=== PATIENT | female | born 1955 | race Caucasian/White ===

== ENCOUNTER → 2018-03-16 10:12 | Outpatient (CLI) | payer OTHER, SELFPAY ==
[2018-03-16 11:07] LABS: Cholesterol 170 mg/dL (140-199); HDL Cholesterol 79 mg/dL (40-60); LDL Cholesterol Calculated 73 mg/dL (<100); Triglycerides 89 mg/dL (35-150)
[2018-03-16 11:54] LABS: Vitamin B12 648 pg/mL (239-931)
[2018-03-17 15:33] LABS: Folate, RBC 1103 ng/mL RBC (> 280)
== END ==
PROVIDERS: PCP Family Medicine; Visit Provider Family Medicine
DX: K14.6 Glossodynia (principal); E78.00 Pure hypercholesterolemia, unspecified
CPT/HCPCS: 36415; 80061; 82607; 82747

== ENCOUNTER → 2018-05-24 10:58 | Outpatient (CLI) | payer OTHER, SELFPAY ==
[2018-05-24 11:32] LABS: Add Manual Diff / Slide Review NO; Basophils Percent Auto 1.1 % (0-2); Eosinophils Percent Auto 1.9 % (2-4); Hematocrit 36.5 % (36-46); Lymphocytes Percent Auto 12.9 % (25-40); Mean Corpuscular HGB Conc 35.6 % (30-36); Mean Corpuscular Hemoglobin 34.8 PG (26-34); Mean Corpuscular Volume 97.9 fL (80-100); Monocytes Percent Auto 6.8 % (3-14); Neutrophils Absolute Auto 5100 /uL (3000-5900); Neutrophils Percent Auto 77.3 % (50-75); Platelet Count 244 X10^3/uL (150-400); Red Blood Cell Count 3.73 X10^6/uL (4.0-5.2); White Blood Cell Count 6.5 X10^3/uL (4.5-11.0)
[2018-05-24 11:44] LABS: Alanine Aminotransferase 21 IU/L (9-52); Albumin 4.1 g/dL (3.5-5.0); Albumin Globulin Ratio 1.8 (1.0-2.8); Alkaline Phosphatase 54 U/L (38-126); Aspartate Aminotransferase 25 IU/L (14-36); BUN Creatinine Ratio 27.1 (6-22); Bilirubin Total 0.4 mg/dL (0.2-1.3); Blood Urea Nitrogen 19 mg/dL (7-17); Calcium 9.3 mg/dL (8.4-10.2); Carbon Dioxide 32 mmol/L (22-32); Chloride 104 mmol/L (98-107); Estimated Glomerular Filt Rate > 60.0 mL/min (>60); Globulin 2.3 g/dL (1.7-4.1); Glucose 106 mg/dL (80-110); HEMOLYSIS < 15 (0-50); Potassium 4.5 mmol/L (3.4-5.1); Sodium 143 mmol/L (137-145); Total Protein 6.4 g/dL (6.3-8.2)
== END ==
PROVIDERS: PCP Family Medicine; Visit Provider Nurse Practitioner Gerontology
DX: D05.12 Intraductal carcinoma in situ of left breast (principal)
CPT/HCPCS: 36415; 80053; 85025

== ENCOUNTER 2018-06-08 12:30 | Oncology outpatient (ONC) | payer OTHER, SELFPAY ==
--- NOTE | 2018-06-08 13:26 | ONC.APRN.PN ---
PN -Subjective Interval history: The patient is a 63 year old Female who is being seen in the clinic 06/08/2018 for ductal carcinoma in situ, left side, status post lumpectomy, favorable histology, low-grade solid and cribriform type, 2 mm in lumpectomy specimen 6 mm by core biopsy, strongly estrogen receptor and progesterone receptor positive. Routine bilateral screening mammogram 11/17/2017 which identified new clustered calcifications in the left breast. Additional imaging ordered which demonstrated architectural distortion consistent with post lumpectomy scar. Impression is benign with a recommendation to repeat one year screening mammogram. 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 She is seeing dermatology, ([facility]) expects to complete treatment in the next few weeks. Jerson remains on tamoxifen. She continues to have night sweats. No vaginal bleeding. Mood is stable. No new musculoskeletal pain. No shortness of breath, lower extremity pain or discomfort. Overall feeling well has been working in her garden. Exercises some, but I need to do more. TIMELINE She underwent bilateral screening mammography on 09/05/2015 with the finding of a cluster of calcifications at 2:00. Additional views on 09/14/2015 showed a cluster of fine pleomorphic punctate calcifications in the left breast at intermediate suspicion for malignancy a stereotactic biopsy was recommended. A stereotactic breast biopsy with clip placement was performed on 09/21/2015 with a finding of a ductal carcinoma in situ cribriform type with intermediate grade nuclei, focal comedo necrosis, no invasive carcinoma, no lymphovascular invasion, microcalcifications present associated with in situ carcinoma, maximum span 6 mm. ER greater than 95% MA 95%. She had to be seen for a postbiopsy hematoma but otherwise healed nicely. From the notes it appears that the patient was considering going to [facility] for treatment and was working on insurance issues but ultimately decided to stay here and consulted with Dr. Romeo who went through the management approach to DCIS and ultimately a lumpectomy was elected A bilateral breast MRI was performed on 11/12/2015 showing no suspicious findings either in the breast tissue or in the internal mammary or axillary nodes that were visualized. She underwent a left breast lumpectomy after needle localization on 11/27/2015 with findings of a small 2 mm focus of ductal carcinoma in situ low-grade solid and cribriform type negative margins closest 3 mm some additional prior biopsies biopsy site changes, no invasive carcinoma. The patient went through menopause 12 years ago and since then treated with estradiol 0.5 mg and Provera. according to Dr. Leon's note. She was seen in October for postmenopausal bleeding on and off and underwent an endometrial biopsy with Dr. Leon that biopsy is not available. She unerwent adjuvant radiation to the left breast from February through March 11, 20 treatments, 4540 cGy. Pt. was started on tamoxifen April 2016. Past Medical History Postmenopausal bleeding seen by Dr. Leon in October and endometrial biopsy was performed, results not available yet. Long history of irritable bowel syndrome she is followed by Dr. Alba at [facility] has been treated with Asacol at last that was unhelpful but Lotronex has helped. She states her colonoscopy is due in 1 year. Last menstrual period 12 years ago treated with estrogen and Provera subsequently. Patient reports a history of osteoporosis; Dr. Archer'e notes say osteopenia on 10/25/15, previously treated with Fosamax; that was discontinued by Josette Cornelius and was receiving Prolia; patient states that Dr. Vance is waiting for the results of the DEXA scan to decide what to do next. Ab0 Migraines Treated briefly in the past for hypertension, not now Negative for hypercholesterolemia, negative for diabetes No other hospitalizations or surgery She receives Lexapro and amitriptyline also sees Lucy Mendoza for depression. She is Ab0. Home Medications and Allergies Home Medications Medication Instructions Recorded Confirmed Type tamoxifen 20 mg PO QDAY #0 tab 06/03/16 03/03/18 History fluorouracil [Efudex] 1 daryl TOPICAL #0 11/24/17 03/03/18 History rizatriptan [Maxalt-[employer] ENGINEER] 10 mg PO PRN PRN #12 tab 04/20/18 Rx dicyclomine 20 mg tablet 20 mg PO BID #60 tab 05/25/18 Rx gabapentin 400 mg capsule 400 mg PO BIDP #60 cap 05/25/18 Rx meloxicam [Mobic] 7.5 mg PO QDAY #30 tab 05/25/18 Rx diphenoxylate-atropine 2.5 2.5 mg PO SEE INSTRUCTIONS #120 06/07/18 Rx mg-0.025 mg tablet Multiple Vitamins 06/08/18 History alosetron [Lotronex] 0.5 mg PO QID 06/08/18 06/08/18 History amitriptyline 25 mg PO BEDTIME 06/08/18 06/08/18 History Allergies Allergy/AdvReac Type Severity Reaction Status Date / Time No Known Drug Allergies Allergy Unverified 03/03/18 12:02 Exam - Constitutional positive no acute distress, positive thin - Routine HEENT Exam Eye: Present: conjunctivae pink. Absent: conjunctival icterus, scleral injection ENT: Present: mucous membranes moist, oropharynx clear - Routine Neck Exam Present: supple. Absent: lymphadenopathy - Routine Chest/Breast/Axilla Exam Chest wall exam standard: Absent: tenderness, mass Breast: Present: scars. Absent: tenderness, induration, mass, rashes Axillae: Absent: lymphadenopathy, mass, tenderness Comments: left breast lumpectomy scar - Routine Respiratory Exam Present: Clear to auscultation bilaterally. Absent: rales, rhonchi, wheezes - Routine Cardiovascular Exam Present: RRR, S1, S2. Absent: murmur, gallop, rubs, JVD - Routine Abdominal Exam Present: soft, normoactive bowel sounds. Absent: tenderness, distended, organomegaly, mass - Routine Extremities Exam Absent: edema, calf tenderness - Routine Skin Exam Present: intact, normal turgor. Absent: rash - Routine Neurological Exam Present: alert, oriented X3 - Routine Psychiatric Exam Present: normal affect Assessment and Plan (1) Ductal carcinoma in situ (DCIS) of left breast Current visit: No Status: Acute The patient is a 63 year old Female who is being seen in the clinic 06/08/2018 for ductal carcinoma in situ, left side, status post lumpectomy, favorable histology, low-grade solid and cribriform type, 2 mm in lumpectomy specimen 6 mm by core biopsy, strongly estrogen receptor and progesterone receptor positive. Tolerating tamoxifen without adverse effects. CBC CMP unremarkable. Annual bilateral screening mammogram will be due in November of 2018. Reassuringly no clinical signs or symptoms to suggest disease recurrence. I have asked the patient to return in 6 months time to establish with 1 of our new oncologist at which point we will also check a CBC, CMP. DXA scan reviewed again with the pt, she has mild osteopenia. She is taking daily vit D and calcium.
--- NOTE | 2018-06-08 13:31 | P.PNONC_ITS ---
PN -Subjective Interval history: The patient is a 63 year old Female who is being seen in the clinic 06/08/2018 for ductal carcinoma in situ, left side, status post lumpectomy, favorable histology, low-grade solid and cribriform type, 2 mm in lumpectomy specimen 6 mm by core biopsy, strongly estrogen receptor and progesterone receptor positive. Routine bilateral screening mammogram 11/17/2017 which identified new clustered calcifications in the left breast. Additional imaging ordered which demonstrated architectural distortion consistent with post lumpectomy scar. Impression is benign with a recommendation to repeat one year screening mammogram. 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 She is seeing dermatology, ([facility]) expects to complete treatment in the next few weeks. Jerson remains on tamoxifen. She continues to have night sweats. No vaginal bleeding. Mood is stable. No new musculoskeletal pain. No shortness of breath , lower extremity pain or discomfort. Overall feeling well has been working in her garden. Exercises some, but I need to do more. TIMELINE She underwent bilateral screening mammography on 09/05/2015 with the finding of a cluster of calcifications at 2:00. Additional views on 09/14/2015 showed a cluster of fine pleomorphic punctate calcifications in the left breast at intermediate suspicion for malignancy a stereotactic biopsy was recommended. A stereotactic breast biopsy with clip placement was performed on 09/21/2015 with a finding of a ductal carcinoma in situ cribriform type with intermediate grade nuclei, focal comedo necrosis, no invasive carcinoma, no lymphovascular invasion, microcalcifications present associated with in situ carcinoma, maximum span 6 mm. ER greater than 95% LA 95%. She had to be seen for a postbiopsy hematoma but otherwise healed nicely. From the notes it appears that the patient was considering going to [facility] for treatment and was working on insurance issues but ultimately decided to stay here and consulted with Dr. Romeo who went through the management approach to DCIS and ultimately a lumpectomy was elected A bilateral breast MRI was performed on 11/12/2015 showing no suspicious findings either in the breast tissue or in the internal mammary or axillary nodes that were visualized. She underwent a left breast lumpectomy after needle localization on 11/27/2015 with findings of a small 2 mm focus of ductal carcinoma in situ low-grade solid and cribriform type negative margins closest 3 mm some additional prior biopsies biopsy site changes, no invasive carcinoma. The patient went through menopause 12 years ago and since then treated with estradiol 0.5 mg and Provera. according to Dr. Leon's note. She was seen in October for postmenopausal bleeding on and off and underwent an endometrial biopsy with Dr. Leon that biopsy is not available. She unerwent adjuvant radiation to the left breast from February through March 11, 20 treatments, 4540 cGy. Pt. was started on tamoxifen April 2016. Past Medical History Postmenopausal bleeding seen by Dr. Leon in October and endometrial biopsy was performed, results not available yet. Long history of irritable bowel syndrome she is followed by Dr. Alba at [facility] has been treated with Asacol at last that was unhelpful but Lotronex has helped. She states her colonoscopy is due in 1 year. Last menstrual period 12 years ago treated with estrogen and Provera subsequently. Patient reports a history of osteoporosis; Dr. Archer'e notes say osteopenia on , previously treated with Fosamax; that was discontinued by Josette Cornelius and was receiving Prolia; patient states that Dr. Vance is waiting for the results of the DEXA scan to decide what to do next. Ab0 Migraines Treated briefly in the past for hypertension, not now Negative for hypercholesterolemia, negative for diabetes No other hospitalizations or surgery She receives Lexapro and amitriptyline also sees Lucy Mendoza for depression. She is Ab0. Home Medications and Allergies Home Medications Medication Instructions Recorded Confirmed Type tamoxifen 20 mg PO QDAY #0 tab 06/03/16 03/03/18 History fluorouracil [Efudex] 1 daryl TOPICAL #0 11/24/17 03/03/18 History rizatriptan [Maxalt-PRACTICING UROLOGIST] 10 mg PO PRN PRN #12 tab 04/20/18 Rx dicyclomine 20 mg tablet 20 mg PO BID #60 tab 05/25/18 Rx gabapentin 400 mg capsule 400 mg PO BIDP #60 cap 05/25/18 Rx meloxicam [Mobic] 7.5 mg PO QDAY #30 tab 05/25/18 Rx diphenoxylate-atropine 2.5 2.5 mg PO SEE INSTRUCTIONS #120 06/07/18 Rx mg-0.025 mg tablet Multiple Vitamins 06/08/18 History alosetron [Lotronex] 0.5 mg PO QID 06/08/18 06/08/18 History amitriptyline 25 mg PO BEDTIME 06/08/18 06/08/18 History Allergies Allergy/AdvReac Type Severity Reaction Status Date / Time No Known Drug Allergies Allergy Unverified 03/03/18 12:02 Exam - Constitutional positive no acute distress, positive thin - Routine HEENT Exam Eye: Present: conjunctivae pink. Absent: conjunctival icterus, scleral injection ENT: Present: mucous membranes moist, oropharynx clear - Routine Neck Exam Present: supple. Absent: lymphadenopathy - Routine Chest/Breast/Axilla Exam Chest wall exam standard: Absent: tenderness, mass Breast: Present: scars. Absent: tenderness, induration, mass, rashes Axillae: Absent: lymphadenopathy, mass, tenderness Comments: left breast lumpectomy scar - Routine Respiratory Exam Present: Clear to auscultation bilaterally. Absent: rales, rhonchi, wheezes - Routine Cardiovascular Exam Present: RRR, S1, S2. Absent: murmur, gallop, rubs, JVD - Routine Abdominal Exam Present: soft, normoactive bowel sounds. Absent: tenderness, distended, organomegaly, mass - Routine Extremities Exam Absent: edema, calf tenderness - Routine Skin Exam Present: intact, normal turgor. Absent: rash - Routine Neurological Exam Present: alert, oriented X3 - Routine Psychiatric Exam Present: normal affect Assessment and Plan (1) Ductal carcinoma in situ (DCIS) of left breast Current visit: No Status: Acute The patient is a 63 year old Female who is being seen in the clinic 06/08/2018 for ductal carcinoma in situ, left side, status post lumpectomy, favorable histology, low-grade solid and cribriform type, 2 mm in lumpectomy specimen 6 mm by core biopsy, strongly estrogen receptor and progesterone receptor positive. Tolerating tamoxifen without adverse effects. CBC CMP unremarkable. Annual bilateral screening mammogram will be due in November of 2018. Reassuringly no clinical signs or symptoms to suggest disease recurrence. I have asked the patient to return in 6 months time to establish with 1 of our new oncologist at which point we will also check a CBC, CMP. DXA scan reviewed again with the pt, she has mild osteopenia. She is taking daily vit D and calcium.
== END 2018-06-23 14:14 ==
LOC: ONC 12:33
PROVIDERS: PCP Family Medicine; Visit Provider Nurse Practitioner Gerontology
DX: D05.12 Intraductal carcinoma in situ of left breast (principal); C51.9 Malignant neoplasm of vulva, unspecified; M85.80 Other specified disorders of bone density and structure, unspecified site; Z17.0 Estrogen receptor positive status [ER+]; Z79.810 Long term (current) use of selective estrogen receptor modulators (SERMs)
CPT/HCPCS: 99214

== ENCOUNTER → 2018-11-11 12:37 | Outpatient (CLI) | payer OTHER, SELFPAY ==
[2018-11-11 13:16] LABS: Add Manual Diff / Slide Review NO; Basophils Absolute Auto 100 /uL (0-100); Basophils Percent Auto 1.3 % (0-2); Eosinophils Absolute Auto 100 /uL (0-450); Hematocrit 38.6 % (36-46); Hemoglobin 13.2 g/dL (12.0-16.0); Lymphocytes Absolute Auto 1200 /uL (1100-4500); Lymphocytes Percent Auto 19.4 % (25-40); Mean Corpuscular HGB Conc 34.1 % (30-36); Mean Corpuscular Hemoglobin 33.5 PG (26-34); Mean Corpuscular Volume 98.2 fL (80-100); Monocytes Absolute Auto 500 /uL (0-900); Monocytes Percent Auto 7.9 % (3-14); Neutrophils Absolute Auto 4300 /uL (1500-7000); Neutrophils Percent Auto 70.4 % (50-75); Platelet Count 268 X10^3/uL (150-400); Red Blood Cell Count 3.93 X10^6/uL (4.0-5.2); Red Cell Distribution Width 11.9 % (11.6-14.8); White Blood Cell Count 6.2 X10^3/uL (4.5-11.0)
[2018-11-11 13:30] LABS: Alanine Aminotransferase 27 IU/L (9-52); Albumin 4.4 g/dL (3.5-5.0); Albumin Globulin Ratio 1.9 (1.0-2.8); Alkaline Phosphatase 66 U/L (38-126); Aspartate Aminotransferase 24 IU/L (14-36); BUN Creatinine Ratio 31.7 (6-22); Bilirubin Total 0.2 mg/dL (0.2-1.3); Blood Urea Nitrogen 19 mg/dL (7-17); Carbon Dioxide 28 mmol/L (22-32); Chloride 101 mmol/L (98-107); Cholesterol 165 mg/dL (140-199); Estimated Glomerular Filt Rate > 60.0 mL/min (>60); Globulin 2.3 g/dL (1.7-4.1); Glucose 87 mg/dL (80-110); HDL Cholesterol 87 mg/dL (40-60); HEMOLYSIS < 15 (0-50); LDL Cholesterol Calculated 48 mg/dL (<100); Potassium 3.6 mmol/L (3.4-5.1); Sodium 138 mmol/L (137-145); Total Protein 6.7 g/dL (6.3-8.2); Triglycerides 148 mg/dL (35-150)
[2018-11-11 15:00] LABS: Thyroid Stimulating Hormone 3.29 uIU/mL (0.47-4.68)
== END ==
PROVIDERS: Family Provider Psychiatry & Neurology Psychiatry; PCP Family Medicine; Visit Provider Internal Medicine Hematology & Oncology
DX: D05.12 Intraductal carcinoma in situ of left breast (principal); I10 Essential (primary) hypertension
CPT/HCPCS: 36415; 80053; 80061; 84443; 85025

== ENCOUNTER → 2018-12-15 14:37 | Outpatient (CLI) | payer OTHER, SELFPAY | PROVIDERS: Family Provider Psychiatry & Neurology Psychiatry; PCP Family Medicine; Visit Provider Internal Medicine Gastroenterology | DX: Z79.899 Other long term (current) drug therapy (principal) | CPT/HCPCS: 36415; 80335 ==

== ENCOUNTER → 2018-12-17 11:34 | Outpatient (CLI) | payer OTHER, SELFPAY ==
--- NOTE | 2018-12-17 | DI.MG.S_ITS ---
BILATERAL DIGITAL SCREENING MAMMOGRAM 3D/2D WITH CAD POST LUMPECTOMY: 12/17/2018 CLINICAL: Routine screening. Personal history of left breast cancer. Comparison is made to exams dated: 11/25/2017 mammogram, 11/17/2017 mammogram, and 09/05/2015 mammogram - [facility]. The tissue of both breasts is extremely dense, which lowers the sensitivity of mammography. Current study was also evaluated with a Computer Aided Detection (CAD) system. There are benign post operative findings in the left breast. There also are benign calcifications in the left breast. No significant masses, calcifications, or other findings are seen in either breast. There has been no significant interval change. IMPRESSION: There is no mammographic evidence of malignancy. A 1 year screening mammogram is recommended. This exam was interpreted at Station ID: [id number]. NOTE: For mammograms, a report in lay terms will be sent to the patient. Approximately 15% of breast malignancies will not be visualized mammographically. In the management of a palpable breast mass, a negative mammogram must not discourage biopsy of a clinically suspicious lesion. Electronically Signed By: Manuel mariscal/marge:12/17/2018 19:27:16 copy to: LEW PARADA letter sent: Normal Exam ACR BI-RADS Category 2: Benign Finding(s) [id number]
== END ==
PROVIDERS: Family Provider Psychiatry & Neurology Psychiatry; PCP Family Medicine; Visit Provider Internal Medicine Hematology & Oncology
DX: Z12.31 Encounter for screening mammogram for malignant neoplasm of breast (principal); Z85.3 Personal history of malignant neoplasm of breast
CPT/HCPCS: 77063; 77067

== ENCOUNTER → 2019-01-07 13:09 | Outpatient (CLI) | payer OTHER, SELFPAY ==
[2019-01-07 14:00] LABS: Add Manual Diff / Slide Review NO; Basophils Absolute Auto 0 /uL (0-100); Basophils Percent Auto 1.1 % (0-2); Eosinophils Absolute Auto 100 /uL (0-450); Eosinophils Percent Auto 2.5 % (2-4); Hematocrit 34.1 % (36-46); Lymphocytes Absolute Auto 1400 /uL (1100-4500); Lymphocytes Percent Auto 32.9 % (25-40); Mean Corpuscular HGB Conc 35.3 % (30-36); Mean Corpuscular Hemoglobin 34.9 PG (26-34); Mean Corpuscular Volume 98.7 fL (80-100); Monocytes Absolute Auto 500 /uL (0-900); Monocytes Percent Auto 10.9 % (3-14); Neutrophils Absolute Auto 2200 /uL (1500-7000); Neutrophils Percent Auto 52.6 % (50-75); Platelet Count 289 X10^3/uL (150-400); Red Blood Cell Count 3.45 X10^6/uL (4.0-5.2); White Blood Cell Count 4.3 X10^3/uL (4.5-11.0)
[2019-01-07 14:07] LABS: Alanine Aminotransferase 25 IU/L (9-52); Albumin 3.2 g/dL (3.5-5.0); Albumin Globulin Ratio 1.5 (1.0-2.8); Alkaline Phosphatase 71 U/L (38-126); Aspartate Aminotransferase 24 IU/L (14-36); Blood Urea Nitrogen 9 mg/dL (7-17); Calcium 8.6 mg/dL (8.4-10.2); Carbon Dioxide 30 mmol/L (22-32); Chloride 99 mmol/L (98-107); Estimated Glomerular Filt Rate > 60.0 mL/min (>60); Globulin 2.1 g/dL (1.7-4.1); Glucose 86 mg/dL (80-110); HEMOLYSIS < 15 (0-50); Potassium 3.9 mmol/L (3.4-5.1); Sodium 136 mmol/L (137-145); Total Protein 5.3 g/dL (6.3-8.2)
[2019-01-07 14:11] LABS: Bilirubin Total < 0.1 mg/dL (0.2-1.3)
== END ==
PROVIDERS: Family Provider Psychiatry & Neurology Psychiatry; PCP Family Medicine; Visit Provider Internal Medicine Gastroenterology
DX: K58.0 Irritable bowel syndrome with diarrhea (principal)
CPT/HCPCS: 36415; 80053; 85025

== ENCOUNTER → 2019-02-02 15:41 | Outpatient (CLI) | payer OTHER, SELFPAY ==
[2019-02-02 16:28] LABS: Alanine Aminotransferase 18 IU/L (9-52); Albumin 3.2 g/dL (3.5-5.0); Albumin Globulin Ratio 1.5 (1.0-2.8); Alkaline Phosphatase 59 U/L (38-126); Aspartate Aminotransferase 26 IU/L (14-36); BUN Creatinine Ratio 21.4 (6-22); Bilirubin Total 0.2 mg/dL (0.2-1.3); Blood Urea Nitrogen 15 mg/dL (7-17); Calcium 8.6 mg/dL (8.4-10.2); Carbon Dioxide 32 mmol/L (22-32); Chloride 101 mmol/L (98-107); Estimated Glomerular Filt Rate > 60.0 mL/min (>60); Globulin 2.1 g/dL (1.7-4.1); Glucose 90 mg/dL (80-110); HEMOLYSIS < 15 (0-50); Potassium 3.8 mmol/L (3.4-5.1); Sodium 137 mmol/L (137-145); Total Protein 5.3 g/dL (6.3-8.2)
[2019-02-02 23:58] LABS: Bilirubin Direct 0.2 mg/dL (0.0-0.4)
== END ==
PROVIDERS: Family Provider Psychiatry & Neurology Psychiatry; PCP Family Medicine; Visit Provider Internal Medicine Gastroenterology
DX: R19.7 Diarrhea, unspecified (principal)
CPT/HCPCS: 36415; 80053; 82248

== ENCOUNTER → 2019-05-03 12:10 | Outpatient (CLI) | payer OTHER, SELFPAY ==
--- NOTE | 2019-05-03 12:12 | DI.RAD.S_ITS ---
PROCEDURE: XR CERVICAL SPINE 2V OR 3V INDICATIONS: headache TECHNIQUE: 3 view(s) of the cervical spine were acquired. COMPARISON: None. FINDINGS: Bones: There is straightening and mild reversal of normal cervical lordosis. Minimal anterolisthesis of C3 on C4 and C4 on C5 is seen. No acute compression fracture. Degenerative endplate changes are noted at C4-5 and C5-6 levels. The lateral masses of C1 appear intact on the odontoid view. No suspicious bony lesions. Soft tissues: No prevertebral soft tissue swelling. 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 Minimal spondylolisthesis at C3-4, and C4-5 levels. No acute compression fracture. Dictated by: Saúl Seals M.D. on 05/03/2019 at 13:33 Approved by: Saúl Seals M.D. on 05/03/2019 at 13:41
== END ==
PROVIDERS: PCP Family Medicine; Visit Provider Hospitalist
DX: M43.12 Spondylolisthesis, cervical region (principal)
CPT/HCPCS: 72040

== ENCOUNTER → 2019-05-30 10:40 | Oncology outpatient (ONC) | payer OTHER, SELFPAY ==
[2018-11-25 11:44] VITALS: BP 126/84; PULSE 90; RESP 20; TEMP 36.3; O2SAT 100
--- NOTE | 2018-11-25 12:01 | ONC.PN ---
PN -Subjective Interval history: The patient is a 63 year old Female who is being seen in the clinic 06/08/2018 for ductal carcinoma in situ, left side, status post lumpectomy, favorable histology, low-grade solid and cribriform type, 2 mm in lumpectomy specimen 6 mm by core biopsy, strongly estrogen receptor and progesterone receptor positive. Since that visit, Hot flashes, mild, not bad. can deal with it. no shortness of breath. no abnormal bleeding. She has always been a low energy person., no new changes. No chest pain. No bone pain. Oncology History She underwent bilateral screening mammography on 09/05/2015 with the finding of a cluster of calcifications at 2:00. Additional views on 09/14/2015 showed a cluster of fine pleomorphic punctate calcifications in the left breast at intermediate suspicion for malignancy a stereotactic biopsy was recommended. A stereotactic breast biopsy with clip placement was performed on 09/21/2015 with a finding of a ductal carcinoma in situ cribriform type with intermediate grade nuclei, focal comedo necrosis, no invasive carcinoma, no lymphovascular invasion, microcalcifications present associated with in situ carcinoma, maximum span 6 mm. ER greater than 95% UT 95%. She had to be seen for a postbiopsy hematoma but otherwise healed nicely. From the notes it appears that the patient was considering going to [facility] for treatment and was working on insurance issues but ultimately decided to stay here and consulted with Dr. Romeo who went through the management approach to DCIS and ultimately a lumpectomy was elected A bilateral breast MRI was performed on 11/12/2015 showing no suspicious findings either in the breast tissue or in the internal mammary or axillary nodes that were visualized. She underwent a left breast lumpectomy after needle localization on 11/27/2015 with findings of a small 2 mm focus of ductal carcinoma in situ low-grade solid and cribriform type negative margins closest 3 mm some additional prior biopsies biopsy site changes, no invasive carcinoma. The patient went through menopause 12 years ago and since then treated with estradiol 0.5 mg and Provera. according to Dr. Leon's note. She was seen in October for postmenopausal bleeding on and off and underwent an endometrial biopsy with Dr. Leon that biopsy is not available. She unerwent adjuvant radiation to the left breast from February through March 11, 20 treatments, 4540 cGy. Pt. was started on tamoxifen April 2016. - Patient Self-Reported Symptoms SR eye issues: Vision changes SR Gastrointestinal issues: Poor or no appetite, Diarrhea, Abdominal pain SR Neuro issues: Headache, Lightheaded/dizzy, Difficulty balancing SR Endocrine issues: Hot flashes - Additional ROS All systems PM: reviewed and no additional remarkable complaints except as stated Home Medications and Allergies Home Medications Medication Instructions Recorded Confirmed Type tamoxifen 20 mg PO QDAY #0 tab 06/03/16 11/25/18 History rizatriptan [Maxalt-SHERIFFS DETECTIVE] 10 mg PO PRN PRN #12 tab 04/20/18 11/25/18 Rx dicyclomine 20 mg tablet 20 mg PO BID #60 tab 05/25/18 11/25/18 Rx gabapentin 400 mg capsule 400 mg PO BIDP #60 cap 05/25/18 11/25/18 Rx Multiple Vitamins 06/08/18 08/16/18 History alosetron [Lotronex] 0.5 mg PO QID 06/08/18 11/25/18 History acetaminophen 300 mg-codeine 30 mg 1 tab PO Q4-6H PRN 08/16/18 11/25/18 History tablet alprazolam 1 mg tablet 1 mg PO BID-TID PRN 08/16/18 11/25/18 History eletriptan 40 mg tablet See Rx Instructions PO ONCE PRN 08/16/18 11/25/18 History escitalopram 10 mg tablet 15 mg PO DAILY tab 08/16/18 11/25/18 History hydrocodone 5 mg-acetaminophen 300 1 tab PO .qd #30 tab 08/16/18 11/25/18 Rx mg tablet hydroxyzine HCl 10 mg tablet 10 mg PO TID-QID PRN 08/16/18 11/25/18 History loperamide 2 mg capsule 2 mg PO Q2-4H PRN 08/16/18 11/25/18 History meperidine 50 mg tablet 50 mg PO Q4-6H PRN 08/16/18 11/25/18 History promethazine 25 mg tablet 25 mg PO Q4-6H PRN 08/16/18 11/25/18 History meloxicam [Mobic] 7.5 mg PO QDAY #30 tab 09/27/18 11/25/18 Rx diphenoxylate-atropine 2.5 1 tab PO Q6H PRN #120 tab 02/11/19 03/21/19 Rx mg-0.025 mg tablet nortriptyline 30 mg ONCE HS 11/25/18 11/25/18 History Allergies Allergy/AdvReac Type Severity Reaction Status Date / Time No Known Drug Allergies Allergy Verified 08/16/18 10:15 Exam Vital signs: Vital Signs Temp Pulse Resp BP Pulse Ox 11/25/18 11:44 97.4 F L 90 20 126/84 100 Intake and Output 11/24/18 11/25/18 11/25/18 23:59 07:59 15:59 Other: Weight 33 kg Patient Weight 11/25/18 23:59 Weight 33 kg Narrative: Constitutional: WDWN, NAD, well groomed, pleasant and cooperative. HEENT: NCAT, EOMI, PERRLA, anicteric sclera. Neck: Supple, No palpable thyromegaly or lymphadenopathy. Respiratory: Clear to auscultation, and no wheezes or rales or rubs. Cardiovascular: RRR, S1 and S2 normal, no M/G/R. No JVD. Abdomen: Soft, NTND, BS normal, no palpable organomegaly, no hernia, no palpable masses. Extremities: No LE pitting edema. Lymphatic: no palpable lymph nodes in the neck, axillae, or groins. Musculoskeletal: normal gait and station Skin: no rashes, no ulcers, no petechiae Neurological: AOx3, CN II-XII grossly intact. No focal motor or sensory deficit. Psychiatric: Good judgment and insight; normal affect; normal thought process; cooperative, no depression, no anxiety. Breast exam right breast no nipple retraction. No palpable nodules. However the breast feels lumpy probably high density. No palpable lymph nodes in the right axilla. The left breast is status post previous partial mastectomy surgical wound has completely healed. No nipple retraction. No palpable lymph nodes in the left axilla. No palpable masses in the left breast. All physical examinations were chaperoned Results - Labs Reviewed. Assessment and Plan (1) Ductal carcinoma in situ (DCIS) of left breast Patient has tolerated the tamoxifen extremely well. I encouraged the patient continue the tamoxifen 20 mg once a day with plan for a total of 5 years. On my physical examination, patient clearly has a high density breasts. I encouraged the patient to get this scheduled mammogram. Patient voiced understanding. I will have the patient come back in about 6 months for follow-up visit. We will repeat CBC CMP.
--- NOTE | 2018-12-21 15:16 | PC.NURSE ---
Pt called into clinic with questions for Dr. Oneil. Pt reports history of dense breasts. Pt reports recent mammo last week. Pt wanted to know if Dr. Oneil thought she should have additional imaging w/ MRI r/t history of breast cancer. Pt also inquiring if Dr. Oneil thought she should be prescribed topical vaginal estrogen cream. Pt reports estrogen cream was discussed at recent annual exam by her OBGYN, Dr. Leon. Let pt know this real estate underwriter would place a note in Dr. Oneil's box so he could address these questions on .
[2019-05-19 12:54] LABS: Add Manual Diff / Slide Review NO; Basophils Absolute Auto 100 /uL (0-100); Eosinophils Absolute Auto 100 /uL (0-450); Eosinophils Percent Auto 1.5 % (2-4); Hematocrit 37.4 % (36-46); Hemoglobin 12.9 g/dL (12.0-16.0); Lymphocytes Absolute Auto 1200 /uL (1100-4500); Lymphocytes Percent Auto 16.3 % (25-40); Mean Corpuscular HGB Conc 34.5 % (30-36); Mean Corpuscular Hemoglobin 33.7 PG (26-34); Mean Corpuscular Volume 97.6 fL (80-100); Monocytes Absolute Auto 500 /uL (0-900); Monocytes Percent Auto 6.5 % (3-14); Neutrophils Absolute Auto 5600 /uL (1500-7000); Neutrophils Percent Auto 74.7 % (50-75); Platelet Count 313 X10^3/uL (150-400); Red Blood Cell Count 3.83 X10^6/uL (4.0-5.2); Red Cell Distribution Width 12.5 % (11.6-14.8); White Blood Cell Count 7.5 X10^3/uL (4.5-11.0)
[2019-05-19 13:05] LABS: Alanine Aminotransferase 23 IU/L (9-52); Albumin 3.8 g/dL (3.5-5.0); Albumin Globulin Ratio 1.6 (1.0-2.8); Alkaline Phosphatase 77 U/L (38-126); Aspartate Aminotransferase 30 IU/L (14-36); BUN Creatinine Ratio 16.7 (6-22); Bilirubin Total 0.4 mg/dL (0.2-1.3); Blood Urea Nitrogen 10 mg/dL (7-17); Calcium 9.4 mg/dL (8.4-10.2); Carbon Dioxide 31 mmol/L (22-32); Chloride 100 mmol/L (98-107); Estimated Glomerular Filt Rate > 60.0 mL/min (>60); Globulin 2.4 g/dL (1.7-4.1); Glucose 108 mg/dL (80-110); HEMOLYSIS < 15 (0-50); Potassium 4.7 mmol/L (3.4-5.1); Sodium 138 mmol/L (137-145); Total Protein 6.2 g/dL (6.3-8.2)
[2019-05-30 10:57] VITALS: BP 132/88; PULSE 90; RESP 20; TEMP 36.8; O2SAT 100
--- NOTE | 2019-05-30 11:12 | P.PNONC_ITS ---
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 Oncology History She was diagnosed with left breastg DCIS after stereotactic breast biopsy on 09/21/2015, cribriform type with intermediate grade nuclei, focal comedonecrosis, no invasive carcinoma, no lymphovascular invasion, microcalci fications present associated with in situ carcinoma, maximum span 6 mm. ER greater than 95% HI 95%. Bilateral breast MRI on 11/12/2015 showed no suspicious findings either in the breast tissue or in the internal mammary or axillary nodes that were visualized. She underwent a left breast lumpectomy after needle localization on 11/27/2015 with findings of a small 2 mm focus of ductal carcinoma in situ low-grade solid and cribriform type negative margins closest 3 mm some additional prior biopsies biopsy site changes, no invasive carcinoma.She underwent adjuvant radiation to the left breast from February through March 11, 20 treatments, 4540 cGy. Pt. was started on tamoxifen April 2016. Interim Events: She denies any new lumps or bumps. Patient denies any headache, double vision or blurred vision. However she said for the past 1 year, she has noticed occasional numbness the left arm or the right arm. She is also having problems with balance and tripped quite often. She denies any shortness of breath or chest pain. She has a medical comorbidities IBS and is on lot medications. She has abdominal symptoms including diarrhea/constipation and abdominal irritation and pain. She is about to travel to [place] next week and will be back until February of next year. - Patient Self-Reported Symptoms SR Constitution: Weight loss/gain, Night Sweats SR eye issues: Vision changes SR Gastrointestinal issues: Nausea, Diarrhea, Abdominal pain SR Neuro issues: Headache, Lightheaded/dizzy, Numbness or tingling, Difficulty balancing SR Endocrine issues: Cold intolerance - Additional ROS All systems PM: reviewed and no additional remarkable complaints except as stated Home Medications and Allergies Home Medications Medication Instructions Recorded Confirmed Type dicyclomine 20 mg tablet 20 mg PO BID #60 tab 05/25/18 05/30/19 Rx Multiple Vitamins 1 tab DAILY 06/08/18 05/30/19 History alosetron [Lotronex] 1 mg PO BID 06/08/18 05/30/19 History escitalopram oxalate 10 mg tablet 15 mg PO DAILY tab 08/16/18 05/30/19 History loperamide 2 mg capsule 2 mg PO Q2-4H PRN 08/16/18 05/30/19 History nortriptyline 50 mg ONCE HS 11/25/18 05/30/19 History estradiol 0.01% (0.1 mg/gram) See Rx Instructions VAG QWEEK 12/15/18 05/30/19 Rx vaginal cream #42.5 gram triamcinolone acetonide 0.1 % See Rx Instructions TOP BID #28.4 12/23/18 05/30/19 Rx topical cream gram alprazolam 1 mg tablet 1 mg PO BID-TID PRN #30 tab 01/27/19 05/30/19 Rx gabapentin 400 mg capsule 400 mg PO BID #180 cap 01/27/19 05/30/19 Rx rizatriptan 10 mg disintegrating 10 mg PO .COMPLEX PRN #30 tab 01/27/19 05/30/19 Rx tablet diphenoxylate-atropine 2.5 1 tab PO Q6H PRN #120 tab 01/28/19 05/30/19 Rx mg-0.025 mg tablet meloxicam 7.5 mg tablet 7.5 mg PO DAILY #90 tab 01/28/19 05/30/19 Rx promethazine 25 mg tablet 25 mg PO Q4-6H PRN #30 tab 01/28/19 05/30/19 Rx hydrocodone 10 mg-acetaminophen 1 tab PO Q8H PRN #30 tab 05/18/19 05/30/19 Rx 325 mg tablet tamoxifen 20 mg PO DAILY #90 tab 05/30/19 Rx Allergies Allergy/AdvReac Type Severity Reaction Status Date / Time No Known Drug Allergies Allergy Verified 05/03/19 11:36 Exam Vital signs: Vital Signs Temp Pulse Resp BP Pulse Ox 05/30/19 10:57 98.3 F 90 20 132/88 100 Intake and Output 05/29/19 05/30/19 05/30/19 23:59 07:59 15:59 Other: Weight 31.8 kg Patient Weight 05/30/19 23:59 Weight 31.8 kg Narrative: Constitutional: WDWN, NAD, well groomed, pleasant and cooperative. HEENT: NCAT, EOMI, PERRLA, anicteric sclera. Neck: Supple, No palpable thyromegaly or lymphadenopathy. Respiratory: Clear to auscultation, and no wheezes or rales or rubs. Cardiovascular: RRR, S1 and S2 normal, no M/G/R. No JVD. Abdomen: Soft, NTND, BS normal, no palpable organomegaly, no hernia, no palpable masses. Extremities: No LE pitting edema. Lymphatic: no palpable lymph nodes in the neck, axillae Musculoskeletal: normal gait and station Skin: no rashes, no ulcers, no petechiae Neurological: AOx3, CN II-XII grossly intact. No focal motor or sensory deficit. Psychiatric: Good judgment and insight; normal affect; Breast exam: deferred. Results - Labs Laboratory Last Values WBC 7.5 X10^3/uL (4.5-11.0) 05/19/19 12:43 RBC 3.83 X10^6/uL (4.0-5.2) L 05/19/19 12:43 Hgb 12.9 g/dL (12.0-16.0) 05/19/19 12:43 Hct 37.4 % (36-46) 05/19/19 12:43 MCV 97.6 fL (80-100) 05/19/19 12:43 MCH 33.7 PG (26-34) 05/19/19 12:43 MCHC 34.5 % (30-36) 05/19/19 12:43 RDW 12.5 % (11.6-14.8) 05/19/19 12:43 Plt Count 313 X10^3/uL (150-400) 05/19/19 12:43 Neut % (Auto) 74.7 % (50-75) 05/19/19 12:43 Lymph % (Auto) 16.3 % (25-40) L 05/19/19 12:43 [place] % (Auto) 6.5 % (3-14) 05/19/19 12:43 Eos % (Auto) 1.5 % (2-4) L 05/19/19 12:43 Baso % (Auto) 1.0 % (0-2) 05/19/19 12:43 Neut # (Auto) 5600 /uL (9563-9326) 05/19/19 12:43 Lymph # (Auto) 1200 /uL (7826-1906) 05/19/19 12:43 [place] # (Auto) 500 /uL (0-900) 05/19/19 12:43 Eos # (Auto) 100 /uL (0-450) 05/19/19 12:43 Baso # (Auto) 100 /uL (0-100) 05/19/19 12:43 Sodium 138 mmol/L (137-145) 05/19/19 12:43 Potassium 4.7 mmol/L (3.4-5.1) 05/19/19 12:43 Chloride 100 mmol/L (98-107) 05/19/19 12:43 Carbon Dioxide 31 mmol/L (22-32) 05/19/19 12:43 BUN 10 mg/dL (7-17) 05/19/19 12:43 Creatinine 0.60 mg/dL (0.52-1.04) 05/19/19 12:43 Estimated GFR > 60.0 mL/min (>60) 05/19/19 12:43 BUN/Creatinine Ratio 16.7 (6-22) 05/19/19 12:43 Glucose 108 mg/dL (80-110) 05/19/19 12:43 Calcium 9.4 mg/dL (8.4-10.2) 05/19/19 12:43 Total Bilirubin 0.4 mg/dL (0.2-1.3) 05/19/19 12:43 AST 30 IU/L (14-36) 05/19/19 12:43 ALT 23 IU/L (9-52) 05/19/19 12:43 Alkaline Phosphatase 77 U/L (38-126) 05/19/19 12:43 Total Protein 6.2 g/dL (6.3-8.2) L 05/19/19 12:43 Albumin 3.8 g/dL (3.5-5.0) 05/19/19 12:43 Globulin 2.4 g/dL (1.7-4.1) 05/19/19 12:43 Albumin/Globulin Ratio 1.6 (1.0-2.8) 05/19/19 12:43 Assessment and Plan (1) Ductal carcinoma in situ (DCIS) of left breast Overview: Left breast DCIS diagnosed on 09/21/2015, ER positive (> 95%), and HI positive (95%). She underwent left breast lumpectomy on 11/27/2015, and then she completed adjuvant radiation to the left breast from February through March 11, 20 treatments, 4540 cGy. Pt. was started on tamoxifen April 2016. Assessment: Clinically, I do not think there is any evidence to suggest disease recurrence or metastasis. The symptoms of arm tingling and numbing as well as frequent tripping has been present for more than a year. It is very unlikely it is a recurrence of her underlying DCIS. I think it is probably related to some neurological or cervical spine disorder. I recommended that we obtain a MRI of the brain and MRI of the spine. However patient said that she is going to go down to [place] next week and will not be back until next February. I recommended that that she be evaluated by neurologist if possible at [place]. She voiced understanding and intention to comply. Plan: 1. Continue Tamoxifen 20 mg daily 2. ASA 81 mg daily 3. Mammogram in February 2020 after coming back from [place] 4. RTC after mammogram.
--- NOTE | 2020-02-07 14:17 | ONC.SCHED ---
Patient called to cancel an appointment and informed us that she now has cancer in her other breast and is being seen and treated in [place]. I confirmed that she has transferred her care to [place].
== END ==
PROVIDERS: Family Provider Psychiatry & Neurology Psychiatry; PCP Family Medicine; Visit Provider Internal Medicine Hematology & Oncology
DX: D05.12 Intraductal carcinoma in situ of left breast (principal); Z17.0 Estrogen receptor positive status [ER+]; Z79.810 Long term (current) use of selective estrogen receptor modulators (SERMs)
CPT/HCPCS: 36415; 80053; 85025; 99214

== ENCOUNTER → 2021-09-26 15:26 | Outpatient (CLI) | payer MEDICARE, SELFPAY ==
--- NOTE | 2021-09-26 | DI.MG.S_ITS ---
UNILATERAL LEFT DIGITAL SCREENING MAMMOGRAM 3D/2D WITH CAD: 09/26/2021 CLINICAL: Routine screening. Personal history of bilateral breast cancer. Comparison is made to exams dated: 12/17/2018 mammogram, 11/25/2017 mammogram, 11/17/2017 mammogram, and 10/24/2016 mammogram - [facility]. The tissue of left breast is extremely dense, which lowers the sensitivity of mammography. Current study was also evaluated with a Computer Aided Detection (CAD) system. There are benign calcifications in the left breast. There also are benign post operative findings in the left breast. No significant masses, calcifications, or other findings are seen in the breast. There has been no significant interval change. IMPRESSION: BENIGN There is no mammographic evidence of malignancy. A 1 year screening mammogram is recommended. This exam was interpreted at Station ID: [id number]. NOTE: For mammograms, a report in lay terms will be sent to the patient. Approximately 15% of breast malignancies will not be visualized mammographically. In the management of a palpable breast mass, a negative mammogram must not discourage biopsy of a clinically suspicious lesion. Electronically Signed By: Ariel reese/marge:09/26/2021 15:54:49 copy to: LEW PARADA letter sent: Normal Exam ACR BI-RADS Category 2: Benign Finding(s) 3342F
== END ==
PROVIDERS: PCP Family Medicine; Referring Provider Family Medicine; Visit Provider Family Medicine
DX: Z12.31 Encounter for screening mammogram for malignant neoplasm of breast (principal); Z85.3 Personal history of malignant neoplasm of breast
CPT/HCPCS: 77063; 77067

== ENCOUNTER → 2022-03-27 12:44 | Outpatient (CLI) | payer MEDICARE, SELFPAY ==
--- NOTE | 2022-03-27 12:47 | DI.RAD.S_ITS ---
PROCEDURE: XR KNEE RT 3V INDICATIONS: knee pain TECHNIQUE: <3> views of the knee were acquired. COMPARISON: None. FINDINGS: Bones: No fractures or dislocations. No suspicious bony lesions. Soft tissues: No joint effusion. No suspicious soft tissue calcifications. IMPRESSION: No acute radiographic abnormality. Dictated by: Sonu Bedoya M.D. on 03/27/2022 at 13:46 Approved by: Sonu Bedoya M.D. on 03/27/2022 at 13:47
--- NOTE | 2022-03-27 12:47 | DI.RAD.S_ITS ---
PROCEDURE: XR KNEE LT 3V INDICATIONS: knee pain TECHNIQUE: <3> views of the knee were acquired. COMPARISON: None. FINDINGS: Bones: No fractures or dislocations. No suspicious bony lesions. Soft tissues: No joint effusion. No suspicious soft tissue calcifications. IMPRESSION: No acute radiographic abnormality. Dictated by: Sonu Bedoya M.D. on 03/27/2022 at 13:45 Approved by: Sonu Bedoya M.D. on 03/27/2022 at 13:46
== END ==
PROVIDERS: PCP Family Medicine; Referring Provider Family Medicine; Visit Provider Family Medicine
DX: M25.561 Pain in right knee (principal); M25.562 Pain in left knee
CPT/HCPCS: 73562

== ENCOUNTER → 2022-10-27 11:55 | Outpatient (CLI) | payer MEDICARE, SELFPAY ==
[2022-10-27 13:39] LABS: Alanine Aminotransferase 23 IU/L (<35); Albumin 4.2 g/dL (3.5-5.0); Albumin Globulin Ratio 1.7 (1.0-2.8); Alkaline Phosphatase 114 U/L (38-126); Aspartate Aminotransferase 30 IU/L (14-36); BUN Creatinine Ratio 25.3 (6-22); Bilirubin Total 0.4 mg/dL (0.2-1.3); Blood Urea Nitrogen 19 mg/dL (7-17); Calcium 9.2 mg/dL (8.4-10.2); Carbon Dioxide 32 mmol/L (22-32); Chloride 98 mmol/L (98-107); Estimated Glomerular Filt Rate > 60 mL/min (>60); Globulin 2.5 g/dL (1.7-4.1); Glucose 69 mg/dL (80-110); HEMOLYSIS < 15 (0-50); Potassium 4.1 mmol/L (3.4-5.1); Sodium 136 mmol/L (137-145); Total Protein 6.7 g/dL (6.3-8.2)
[2022-10-27 14:27] LABS: TSH w/ Reflex to FT4 1.86 uIU/mL (0.47-4.68)
== END ==
PROVIDERS: PCP Family Medicine; Referring Provider Family Medicine; Visit Provider Family Medicine
DX: E46 Unspecified protein-calorie malnutrition (principal); I10 Essential (primary) hypertension
CPT/HCPCS: 36415; 80053; 84443

== ENCOUNTER → 2022-10-27 14:11 | Outpatient (CLI) | payer MEDICARE, SELFPAY ==
--- NOTE | 2022-10-27 14:12 | DI.MG.S_ITS ---
UNILATERAL LEFT DIGITAL SCREENING MAMMOGRAM 3D/2D WITH CAD POST LUMPECTOMY POST MASTECTOMY: 10/27/2022 CLINICAL: Routine screening. Personal history of Bilateral Breast cancer. Comparison is made to exams dated: 09/26/2021 mammogram, 12/17/2018 mammogram, and 11/17/2017 mammogram - [facility]. The left breast is extremely dense, which lowers the sensitivity of mammography (category d />75% glandular tissue). Current study was also evaluated with a Computer Aided Detection (CAD) system. There are benign calcifications in the left breast. There also are benign post operative findings in the left breast. No significant masses, calcifications, or other findings are seen in the breast. There has been no significant interval change. IMPRESSION: BENIGN There is no mammographic evidence of malignancy. A 1 year screening mammogram is recommended. This exam was interpreted at Station ID: [id number]. NOTE: For mammograms, a report in lay terms will be sent to the patient. Approximately 15% of breast malignancies will not be visualized mammographically. In the management of a palpable breast mass, a negative mammogram must not discourage biopsy of a clinically suspicious lesion. Electronically Signed By: Nikita Garza M.D. acr/penrad:10/27/2022 14:45:33 copy to: LEW PARADA letter sent: Normal Exam ACR BI-RADS Category 2: Benign Finding(s) 3342F
== END ==
PROVIDERS: PCP Family Medicine; Referring Provider Family Medicine; Visit Provider Family Medicine
DX: Z12.31 Encounter for screening mammogram for malignant neoplasm of breast (principal); C50.911 Malignant neoplasm of unspecified site of right female breast; D05.12 Intraductal carcinoma in situ of left breast
CPT/HCPCS: 77063; 77067

== ENCOUNTER → 2022-10-27 14:14 | Outpatient (CLI) | payer MEDICARE, SELFPAY ==
--- NOTE | 2022-10-27 14:14 | DI.CT.S_ITS ---
PROCEDURE: CT CHEST WO CON INDICATIONS: 6 mo FU Right lower left nodule TECHNIQUE: Noncontrast 2.0-2.5 mm thick sections acquired from the pulmonary apices to the posterior costophrenic angles. 7 mm thick axial MIP and 5 mm coronal and sagittal reformats were then acquired. A low radiation dose technique was utilized. COMPARISON: None. FINDINGS: Image quality: Diagnostic, given the low radiation dose technique. Lungs and pleura: Anterior reticulation of the upper lobes, presumably postradiation fibrosis. Resolved central ground-glass and smooth interstitial thickening. Linear region of nodularity within the central right lower lobe, probably an impacted airway (3/141-150). Mediastinum: Heart size is normal. No pericardial effusion. No mediastinal adenopathy by size criteria. Thoracic aorta and central pulmonary arteries are normal in size. Esophagus is normal in caliber. No hiatal hernia. Mild coronary calcifications for age. Bones and chest wall: No suspicious bony lesions. No vertebral body compression fractures. No axillary or supraclavicular adenopathy by size criteria. Prior right mastectomy and a left lumpectomy. Thyroid gland is atrophic . Abdomen: Visualized upper abdomen solid organs and bowel loops appear normal in the absence of contrast. IMPRESSION: 1. No suspicious pulmonary nodules. 2. Resolved central ground-glass and smooth interstitial thickening. 3. Bilateral breast surgeries, as above. No axillary adenopathy. Dictated by: Bill Heath M.D. on 10/27/2022 at 15:13 Approved by: Bill Heath M.D. on 10/27/2022 at 15:21
== END ==
PROVIDERS: PCP Family Medicine; Referring Provider Family Medicine; Visit Provider Family Medicine
DX: R91.1 Solitary pulmonary nodule (principal); E46 Unspecified protein-calorie malnutrition; I10 Essential (primary) hypertension
CPT/HCPCS: 36415; 71250; 80053; 84443

== ENCOUNTER → 2023-06-11 16:40 | Outpatient (CLI) | payer MEDICARE, SELFPAY ==
[2023-06-11 17:08] LABS: Add Manual Diff / Slide Review NO; Basophils Absolute Auto 100 /uL (0-100); Basophils Percent Auto 1.3 % (0-2); Eosinophils Absolute Auto 200 /uL (0-450); Eosinophils Percent Auto 4.2 % (2-4); Hematocrit 35.5 % (36-46); Hemoglobin 12.8 g/dL (12.0-16.0); Lymphocytes Absolute Auto 1500 /uL (1100-4500); Lymphocytes Percent Auto 27.5 % (25-40); Mean Corpuscular Volume 102.8 fL (80-100); Monocytes Absolute Auto 500 /uL (0-900); Monocytes Percent Auto 9.7 % (3-14); Neutrophils Absolute Auto 3200 /uL (1500-7000); Neutrophils Percent Auto 57.3 % (50-75); Platelet Count 236 X10^3/uL (150-400); Red Blood Cell Count 3.46 X10^6/uL (4.0-5.2); Red Cell Distribution Width 12.7 % (11.6-14.8); White Blood Cell Count 5.6 X10^3/uL (4.5-11.0)
[2023-06-11 17:51] LABS: Alanine Aminotransferase 20 IU/L (<35); Albumin 4.2 g/dL (3.5-5.0); Albumin Globulin Ratio 1.6 (1.0-2.8); Alkaline Phosphatase 85 U/L (38-126); Aspartate Aminotransferase 32 IU/L (14-36); BUN Creatinine Ratio 32.8 (6-22); Bilirubin Total 0.5 mg/dL (0.2-1.3); Blood Urea Nitrogen 22 mg/dL (7-17); Calcium 9.7 mg/dL (8.4-10.2); Carbon Dioxide 33 mmol/L (22-32); Chloride 99 mmol/L (98-107); Estimated Glomerular Filt Rate > 60 mL/min (>60); Globulin 2.7 g/dL (1.7-4.1); Glucose 89 mg/dL (80-110); HEMOLYSIS < 15 (0-50); Potassium 3.7 mmol/L (3.4-5.1); Sodium 135 mmol/L (137-145); Total Protein 6.9 g/dL (6.3-8.2)
[2023-06-11 18:40] LABS: Vitamin B12 578 pg/mL (239-931)
[2023-06-11 18:45] LABS: Thyroid Stimulating Hormone 9.58 uIU/mL (0.47-4.68)
== END ==
PROVIDERS: PCP Family Medicine; Referring Provider Family Medicine; Visit Provider Family Medicine
DX: I10 Essential (primary) hypertension (principal); F41.9 Anxiety disorder, unspecified; D05.12 Intraductal carcinoma in situ of left breast
CPT/HCPCS: 36415; 80053; 82607; 84443; 85025

== ENCOUNTER → 2024-11-28 12:22 | Outpatient (CLI) | payer MEDICARE, SELFPAY ==
[2024-11-28 13:48] LABS: Appearance Urine UA CLEAR; Bilirubin Urine UA NEGATIVE (NEGATIVE); Color Urine UA YELLOW; Glucose Urine UA NEGATIVE (Negative); Ketones Urine UA NEGATIVE (NEGATIVE); Leukocyte Esterase Urine UA NEGATIVE (NEGATIVE); Nitrite Urine UA NEGATIVE (Negative); Occult Blood Urine UA NEGATIVE (Negative); Protein Urine UA NEGATIVE (Negative); Specific Gravity Urine UA <=1.005 (1.000-1.035); Urobilinogen Urine UA 0.2 E.U./dL (0.2)
[2024-11-28 13:52] LABS: pH Urine UA 5.5 (4.5-8.0)
[2024-11-28 13:59] LABS: Bacteria Urine None Seen; Culture Indicated Urine Cult Not Indicated; RBC Urine None Seen (0-5/HPF); Squamous Epithelial Cell Urine 0-1 /HPF (0-5/HPF); Urine Volume 10mL (spun); WBC Urine 0-1/HPF (0-5/HPF)
== END ==
PROVIDERS: PCP Family Medicine; Referring Provider Family Medicine; Visit Provider Family Medicine
DX: E03.9 Hypothyroidism, unspecified (principal); R30.0 Dysuria
CPT/HCPCS: 81001

== ENCOUNTER → 2025-04-13 15:42 | Outpatient (CLI) | payer MEDICARE, SELFPAY ==
[2025-04-13 16:15] LABS: Hematocrit 31.9 % (36-46); Hemoglobin 11.1 g/dL (12.0-16.0)
== END ==
PROVIDERS: PCP Family Medicine; Referring Provider Family Medicine; Visit Provider Family Medicine
DX: D64.9 Anemia, unspecified (principal)
CPT/HCPCS: 36415; 85014; 85018

== ENCOUNTER → 2025-05-30 13:34 | Outpatient (CLI) | payer MEDICARE, SELFPAY ==
--- NOTE | 2025-05-30 13:35 | DI.RAD.S_ITS ---
PROCEDURE: XR DEXA AXIAL SKELETON INDICATIONS: screen for osteoporosis COMPARISON: [facility], , DEXA AXIAL SKELETON, 12/22/2017, 10:27. [facility], , DEXA AXIAL SKELETON, 12/13/2015, 10:44. FINDINGS: Lumbar Spine: Bone mineral density is 0.841 g/cm2, T score -1.9, osteopenia. Left Femoral Neck: Bone mineral density is 0.534 g/cm2, T score -2.8. Left Hip: Bone mineral density is 0.661 g/cm2, T score -2.3, osteoporosis. Fracture Risk Calculation (when applicable): 10-year fracture risk of a major osteoporotic fracture 13 percent and of a hip fracture 4.3 percent. (T score greater or equal to -1.0 to: NORMAL) (T score from -1.1 to -2.4: OSTEOPENIA) (T score less than or equal to -2.5: OSTEOPOROSIS) IMPRESSION: Osteoporosis Follow-up guidelines as follows: Osteoporosis: Consider a repeat DEXA and Vertebral Fracture Assessment (VFA) exam in 2 years or sooner if medically necessary, to reassess this patient's status. Osteopenia: Consider a repeat DEXA in 2-3 years to reassess this patient's status, or if there is a new clinical indication. Normal: Consider a repeat DEXA in 5 years or sooner, or if there is a new clinical indication. All treatment decisions require clinical judgment and consideration of individual patient factors, including patient preferences, comorbidities, previous drug use, risk factors not captured in the FRAX model (e.g., frailty, falls, vitamin D deficiency, increased bone turnover, interval significant decline in bone density ) and possible under- or over-estimation of fracture risk by FRAX. In addition, the NOF Guide recommends that FDA-approved medical therapies be considered in postmenopausal women and men age >= 50 years with a: * Hip or vertebral (clinical or morphometric) fracture * T-score of <=-2.5 at the spine or hip * Ten-year fracture probability by FRAX of >= 3% for hip fracture or >=20% for major osteoporotic fracture. Dictated by: Killian Zavala M.D. on 05/30/2025 at 15:36 Approved by: Killian Zavala M.D. on 05/30/2025 at 15:38
== END ==
PROVIDERS: PCP Family Medicine; Referring Provider Family Medicine; Visit Provider Family Medicine
DX: M81.0 Age-related osteoporosis without current pathological fracture (principal); Z78.0 Asymptomatic menopausal state
CPT/HCPCS: 77080

== ENCOUNTER → 2025-06-06 13:10 | Outpatient (CLI) | payer MEDICARE, SELFPAY ==
[2025-06-06 13:48] LABS: Hematocrit 32.5 % (36-46); Hemoglobin 11.6 g/dL (12.0-16.0)
[2025-06-06 14:01] LABS: INR 0.9 (0.9-1.3); Prothrombin Time 10.2 SECONDS (9.4-12.5)
[2025-06-06 14:03] LABS: PTT Partial Thromboplastin Tim 28 SECONDS (25.1-36.5)
[2025-06-06 14:09] LABS: HEMOLYSIS < 15 (0-50); Iron 117 ug/dL (37-170)
[2025-06-06 14:20] LABS: Percent Iron Saturation 44 % (15-50); Total Iron Binding Capacity 266 ug/dL (265-497); Transferrin 243 mg/dL (206-381)
[2025-06-06 14:45] LABS: Ferritin 69 ng/mL (11-264)
[2025-06-06 15:00] LABS: Vitamin B12 > 1000 pg/mL (239-931)
== END ==
PROVIDERS: PCP Family Medicine; Referring Provider Physician Assistant; Visit Provider Physician Assistant
DX: K50.919 Crohn's disease, unspecified, with unspecified complications (principal); D69.9 Hemorrhagic condition, unspecified; D64.89 Other specified anemias; E53.8 Deficiency of other specified B group vitamins
CPT/HCPCS: 36415; 82607; 82728; 83540; 83550; 85014; 85018; 85610; 85730